=== PATIENT | male | born 1950 | race Caucasian/White ===

== ENCOUNTER 2024-11-03 14:09 | Emergency (ER) | payer OTHER, MEDICARE ==
[~2024-11-03] VITALS: Ht 182.9 cm; Wt 95.2 kg
[2024-11-03] MEDS ORDERED: Morphine Sulfate 4 MG/1 ML Injection ONE (14:22)
[2024-11-03] MEDS ORDERED: Ondansetron HCl 2 MG / ML 2ML Vial IV ONE (14:30)
[2024-11-03] MEDS ORDERED: Morphine Sulfate 4 MG/1 ML Injection IV ONE (14:30)
[2024-11-03] MEDS ORDERED: CeFAZolin Sodium 1,000 MG in NS 50 ML IV ONE (14:30)
[2024-11-03] MEDS ORDERED: HYDROmorphone HCl/Pf 1MG SYR ONE (14:32)
[2024-11-03] MEDS ORDERED: HYDROmorphone HCl/Pf 1MG SYR IV ONE ×2 (14:40→15:30)
[2024-11-03 14:55] VITALS: BP 129/80
[2024-11-03] MEDS ORDERED: Ketamine HCl 100 MG / ML 5ML Vial IV ONE (14:55)
[2024-11-03] MEDS ORDERED: NS 1,000 ML IV ONE (15:02)
[2024-11-03] MEDS ORDERED: Midazolam HCl 1MG / ML 2ML Vial IV ONE (15:50)
[2024-11-03] MEDS ORDERED: METF500 (15:56)
[2024-11-03] MEDS ORDERED: AMLODIPINE BESY10 MG PO (15:58)
[2024-11-03] MEDS ORDERED: ATORVASTATIN CA20 MG PO (15:58)
[2024-11-03] MEDS ORDERED: LISI20 PO (15:58)
== END 2024-11-03 17:28 | disposition home or self-care (01) ==
LOC: ER 14:09
DX: S42.491B Other displaced fracture of lower end of right humerus, initial encounter for open fracture (principal); Z79.84 Long term (current) use of oral hypoglycemic drugs; Z79.899 Other long term (current) drug therapy; V86.96XA Unspecified occupant of dirt bike or motor/cross bike injured in nontraffic accident, initial encounter
CPT/HCPCS: 29105; 73070; 96365-59; 96375-59; 96376-59; 99152; 99284-25; J0690; J1171; J2250; J2270; J2405; J7030

== ENCOUNTER 2024-11-09 12:03 | Emergency (ER) | payer MEDICARE ==
[~2024-11-09] VITALS: Ht 182.9 cm; Wt 95.2 kg
[~2024-11-09 12:03] MED LIST: AMLODIPINE BESY10 MG PO; ATORVASTATIN CA20 MG PO; LISI20 PO; METF500
[2024-11-09 12:47] LABS: BASOPHILS ABSOLUTE AUTO 0.03 K/mm3 (0.00-0.23); BASOPHILS PERCENT AUTO 0 % (0-2); EOSINOPHILS ABSOLUTE AUTO 0.21 K/mm3 (0.00-0.68); EOSINOPHILS PERCENT AUTO 2 % (0-6); Hematocrit 26.6 % (37.0-53.0); Hemoglobin 8.8 g/dL (13.5-17.5); IMMATURE GRAN ABSOLUTE AUTO 0.14 K/mm3 (0.00-0.10); IMMATURE GRAN PERCENT AUTO 1 % (0-1); LYMPHOCYTES ABSOLUTE AUTO 1.85 K/mm3 (0.84-5.20); LYMPHOCYTES PERCENT AUTO 15 % (21-46); MONOCYTES ABSOLUTE AUTO 0.95 K/mm3 (0.16-1.47); MONOCYTES PERCENT AUTO 8 % (4-13); Mean Corpuscular HGB Conc 33.1 g/dL (31.5-36.5); Mean Corpuscular Volume 96 fL (80-100); NEUTROPHILS ABSOLUTE AUTO 8.98 K/mm3 (1.96-9.15); NEUTROPHILS PERCENT AUTO 74 % (41-73); NRBC ABSOLUTE 0.04 K/mm3 (0.00-0.02); NRBC Auto 0.3 /100 WBC (0.0-0.2); Platelet Count 448 K/mm3 (150-400); RDW Coefficient Variation 12.8 % (11.7-14.2); RDW Standard Deviation 45.1 fL (35.1-46.3)
[2024-11-09 13:39] LABS: Alanine Aminotransfer (ALT/SGP 17.0 U/L (12-78); Albumin, Blood 2.4 g/dL (3.4-5.0); Albumin/Globulin Ratio 0.6 (0.8-1.8); Anion Gap 13.0 mmol/L (3-11); Aspartate Aminotrans (AST/SGOT 28.0 U/L (12-37); Bilirubin, Total 1.2 mg/dL (0.1-1.0); Blood Urea Nitrogen 35.0 mg/dL (8-24); CO2, Blood 24.0 mmol/L (21-32); Calcium, Blood 9.1 mg/dL (8.5-10.1); Chloride, Blood 99.0 mmol/L (98-108); Creatinine, Blood 1.75 mg/dL (0.60-1.20); Globulin, Blood 4.3 g/dL (2.2-4.0); Glucose, Blood 172.0 mg/dL (70-99); Potassium, Blood 4.5 mmol/L (3.5-5.5); Sodium, Blood 131.0 mmol/L (136-145); Total Protein, Blood 6.7 g/dL (6.4-8.2)
[2024-11-09] MEDS ORDERED: NS 1,000 ML IV SCH (14:25)
[2024-11-09] MEDS ORDERED: Metoclopramide HCl 5MG / ML 2ML Vial IV ONE (14:45)
[2024-11-09 16:30] VITALS: BP 157/75
== END 2024-11-09 16:37 | disposition home or self-care (01) ==
LOC: ER 12:03
PROVIDERS: Student in an Organized Health Care Education/Training Program
DX: K56.7 Ileus, unspecified (principal); K59.03 Drug induced constipation; T40.2X5A Adverse effect of other opioids, initial encounter; K82.1 Hydrops of gallbladder; M96.830 Postprocedural hemorrhage of a musculoskeletal structure following a musculoskeletal system procedure; I10 Essential (primary) hypertension; I35.0 Nonrheumatic aortic (valve) stenosis; E11.9 Type 2 diabetes mellitus without complications; Z79.84 Long term (current) use of oral hypoglycemic drugs; Z79.899 Other long term (current) drug therapy
CPT/HCPCS: 74177; 80053; 82248; 83690; 85025; 96361; 96374-59; 99284-25; J2765; J7030; Q9967